=== PATIENT | male | born 1935 | race Caucasian/White ===

== ENCOUNTER 2020-02-26 14:57 | Inpatient (IN) ==
[2020-02-26] MEDS ORDERED: Haloperidol Lactate 5 MG/ML VIAL IM ONE (15:15)
[2020-02-26] MEDS ORDERED: Haloperidol Lactate 5 MG/ML VIAL IVP PRN (15:24)
[2020-02-26] MEDS ORDERED: polyethylene glycoL 3350 17 GM POWD.PACK PO PRN (15:24)
[2020-02-26] MEDS ORDERED: Albuterol 2.5 MG/3 ML NEBULIZER IH PRN (15:24)
[2020-02-26] MEDS ORDERED: Ondansetron 4 MG/2 ML VIAL IVP PRN (15:24)
[2020-02-26] MEDS ORDERED: Atropine Sulfate 1% 40 DROP/2 ML BOTTLE SL PRN (15:24)
[2020-02-26] MEDS ORDERED: Morphine Sulfate Oral CONC 10 MG/0.5 ML ORAL.SYG PO PRN (15:24)
[2020-02-26] MEDS ORDERED: Acetaminophen 325 MG TABLET PO PRN (15:24)
[2020-02-26] MEDS: *HR* LORazepam 2 MG/ML VIAL IVP PRN (17:22)
[2020-02-27] MEDS: *HR* LORazepam 2 MG/ML VIAL IVP PRN ×3 (07:02→21:28)
[2020-02-27] MEDS: Morphine Sulfate 2 MG/ML SYRINGE IVP PRN ×2 (07:03→17:01)
[2020-02-28] MEDS: *HR* LORazepam 2 MG/ML VIAL IVP PRN (01:03)
[2020-02-28] MEDS: Morphine Sulfate 2 MG/ML SYRINGE IVP PRN (01:12)
[2020-02-28 01:31] VITALS: BP 79/49
== END 2020-02-28 02:40 | disposition expired | DRG 951 ==
LOC: INPPIK 15:12
PROVIDERS: ADMIT Family Medicine; ATTEND Family Medicine